=== PATIENT | female | born 1960 | race Caucasian/White ===

== ENCOUNTER 2020-08-14 15:01 | Emergency (ER) | payer MEDICARE, MEDICAID, SELFPAY | END 2020-08-14 16:27 | disposition left against medical advice (07) | PROVIDERS: Emergency Provider Emergency Medicine; PCP Internal Medicine | DX: M54.9 Dorsalgia, unspecified (principal) ==

== ENCOUNTER 2020-10-30 08:04 | Outpatient (REF) | payer MEDICARE, MEDICAID, SELFPAY ==
[2020-10-30 10:12] LABS: MANUAL DIFF FLAG NO
[2020-10-30 10:17] LABS: Basophils Absolute Auto 0.1 X10*3/uL (0.0-0.2); Basophils Percent Auto 1.2 % (0-2); Eosinophils Absolute Auto 0.2 X10*3/uL (0.0-0.4); Eosinophils Percent Auto 4.6 % (0-4); Hematocrit 37.7 % (37-47); Hemoglobin 12.8 g/dl (12.0-16.0); Lymphocytes Absolute Auto 1.4 X10*3/uL (1.2-4.9); Lymphocytes Percent Auto 27.5 % (20-40); Mean Corpuscular Hemoglobin 31.7 pg (27.0-33.0); Mean Corpuscular Volume 93.3 fL (80-98); Mean Platelet Volume 11.2 fL (9.4-12.3); Monocytes Absolute Auto 0.4 X10*3/uL (0.1-1.2); Monocytes Percent Auto 7.2 % (2-11); Neutrophils Percent Auto 59.5 % (45-73); Platelet Count 224 X10*3/uL (160-400); Red Blood Count 4.04 X10*6/uL (4.20-5.50); Red Cell Distribution Width 12.4 % (11.0-16.0)
[2020-10-30 10:41] LABS: Alanine Aminotransferase 15 U/L (0-31); Albumin Level 4.3 g/dL (3.5-5.0); Alkaline Phosphatase 60 U/L (39-117); Anion Gap 10 (12-20); Aspartate Amino Transferase 15 U/L (5-31); Bilirubin Total 0.6 mg/dL (0.0-1.0); Blood Urea Nitrogen 13 mg/dL (9-16); Calcium 9.3 mg/dL (8.4-10.2); Carbon Dioxide 26 mmol/L (22-29); Chloride 108 mmol/L (96-108); Estimated Glomerular Filt Rate > 60; Glucose Fasting 89 mg/dL (60-99); Potassium 4.3 mmol/L (3.3-5.1); Sodium 140 mmol/L (135-145); Total Protein 6.5 g/dL (6.5-8.0)
[2020-11-01 05:22] LABS: DHEA Sulfate 96 mcg/dL (8-188)
[2020-11-03 15:56] LABS: Testosterone, Total 35 ng/dL (2-45)
[2020-11-04 12:11] LABS: 17 OH Pregnenolone, LC/MS 420 ng/dL
[2020-11-04 13:36] LABS: Testosterone, Free 3.9 pg/mL (0.1-6.4); Testosterone, Total 35 ng/dL (2-45)
[2020-11-05 18:51] LABS: Progesterone <0.1 ng/mL
[2020-11-08 21:32] LABS: Estradiol Free 0.09 pg/mL; Estradiol, Ultrasensitive 4 pg/mL
== END 2020-10-30 08:05 | disposition home or self-care (01) ==
LOC: HO.10HDL 08:04
PROVIDERS: Visit Provider Family Medicine
DX: R53.83 Other fatigue (principal); N95.1 Menopausal and female climacteric states; E55.9 Vitamin D deficiency, unspecified
CPT/HCPCS: 36415; 80053; 82306; 82627; 82670; 82681; 84143; 84144; 84402; 84403; 85025